=== PATIENT | female | born 1980 | race Caucasian/White ===

== ENCOUNTER 2016-09-30 20:19 | Emergency (ER) | payer MEDICAID ==
[2015-11-29 08:14] VITALS: BMI 25.2
[~2016-09-30 20:19] MED LIST: AMOXICILLIN875 MG; ATIVAN1 MG PO; HYDROCODONE-APA1 TAB PO; IBUPROFEN600 MG PO; PRENATAL COMPLE1 TAB PO; ZOLOFT100 MG PO
[2016-09-30 21:29] LABS: BASOPHILS 0.2 % (0.0-2.0); EOSINOPHILS 1.9 % (0-7); HEMOGLOBIN 12.3 g/dL (12-16); IMMATURE GRANULOCYTES 0.4 % (0-5); LYMPHOCYTES 26.5 % (15-50); MCHC 32.4 g/dL (31.0-37.0); MCV 92.7 fL (80.0-100.0); MEAN PLATELET VOLUME 10.3 fL (7.4-10.4); MONOCYTES 6.8 % (2-11); NEUTROPHILS 64.2 % (40-80); PLATELET COUNT 272 10x3/uL (130-400); RDW 13.5 % (11.5-14.5); WBC 10.8 10x3/uL (4.8-10.8)
[2016-09-30 21:54] LABS: ALKALINE PHOSPHATASE 66 U/L (46-116); ALT (SGPT) 17 U/L (10-68); BILIRUBIN - TOTAL 0.19 mg/dL (0.2-1.3); CALC OSMOLALITY 285 mosm/kg (275-300); CALCIUM 8.7 mg/dL (8.5-10.1); CARBON DIOXIDE 27.5 mmol/L (21.0-32.0); CHLORIDE - SERUM 106 mmol/L (98-107); CREATININE - SERUM 0.6 mg/dL (0.6-1.3); GLUCOSE 87 mg/dL (74-106); HCG SERUM NEGATIVE (NEGATIVE); POTASSIUM - SERUM 4.2 mmol/L (3.5-5.1); PROTEIN - SERUM 7.3 g/dL (6.4-8.2); SODIUM 143 mmol/L (136-145); UREA NITROGEN 17 mg/dL (7-18); eGFR NON AFRICAN AMERICAN > 90 mL/min (90-120)
[2016-10-01 00:38] LABS: APPEARANCE HAZY (CLEAR); BILIRUBIN NEGATIVE (NEGATIVE); COLOR YELLOW (YELLOW); GLUCOSE NEGATIVE (NEGATIVE); KETONE NEGATIVE (NEGATIVE); LEUKOCYTE ESTERASE NEGATIVE (NEGATIVE); NITRITE NEGATIVE (NEGATIVE); PROTEIN NEGATIVE (NEGATIVE); SPECIFIC GRAVITY 1.025 (1.005-1.020); UROBILINOGEN NORMAL (NORMAL)
== END 2016-10-01 00:41 | disposition home or self-care (01) ==
LOC: D.ER 20:19
PROVIDERS: Emergency Medicine
DX: N93.8 Other specified abnormal uterine and vaginal bleeding (principal); F17.200 Nicotine dependence, unspecified, uncomplicated

== ENCOUNTER 2016-10-09 05:24 | Day surgery (SDC) | payer MEDICAID ==
[2016-10-07 15:30] LABS: BASOPHILS 0.2 % (0.0-2.0); HEMATOCRIT 37.1 % (36.0-48.0); HEMOGLOBIN 11.7 g/dL (12-16); IMMATURE GRANULOCYTES 0.2 % (0-5); LYMPHOCYTES 25.9 % (15-50); MCH 29.6 pg (26.0-34.0); MCHC 31.5 g/dL (31.0-37.0); MCV 93.9 fL (80.0-100.0); MEAN PLATELET VOLUME 10.1 fL (7.4-10.4); MONOCYTES 6.1 % (2-11); NEUTROPHILS 65.6 % (40-80); PLATELET COUNT 295 10x3/uL (130-400); RBC 3.95 10x6/uL (4.00-5.40); RDW 13.5 % (11.5-14.5)
[~2016-10-09] VITALS: Ht 165.1 cm; Wt 59.0 kg
[2016-10-09 08:19] VITALS: BP 97/49; Ht 165.1 cm; Wt 59.0 kg
[2016-10-09 08:25] LABS: HCG URINE NEGATIVE (NEGATIVE)
--- NOTE | 2016-10-14 09:17 | OP ---
PATIENT NAME: FOREST SNOWDEN MEDICAL RECORD: [id number] :82 LOCATION:D[facility] ADMISSION DATE: SURGEON: VIPUL MARTINEZ MD DATE OF OPERATION: 10/09/2016 PREOPERATIVE DIAGNOSES: 1. Menorrhagia. 2. High-grade cervical dysplasia. POSTOPERATIVE DIAGNOSES: 1. Menorrhagia. 2. High-grade cervical dysplasia. PROCEDURE: 1. Dilation and curettage. 2. Loop electrosurgical excision procedure. SURGEON: Vipul Martinez MD. ANESTHESIA: General. INTRAVENOUS FLUIDS: Per anesthesia record. SPECIMENS: 1. Endometrial curettings. 2. Cervical cone biopsy. COMPLICATIONS: None apparent. SPECIMENS: Were as noted. PROCEDURE IN DETAIL: The patient was taken to the operating room where general anesthesia was achieved without difficulty. The patient was then prepped and draped in normal sterile fashion and placed in the dorsal lithotomy position in the [facility]. At this point, the vagina was prepped and the bladder was straight cathed and drained of approximately 20 cc of clear yellow urine. At this point, an insulated speculum was then placed into the vagina. The cervix was identified and grasped on its anterior lip with a single tooth tenaculum. The patient was found to be approximately 5-6 mm dilated and a #1 curette was used to fractionally sample all 4 quadrants of the uterus without difficulty. When the tenaculum was then removed some bleeding was noted from the tenaculum site. This was then cauterized using the Bovie cautery. At this point, the LEEP procedure was performed to a depth of approximately 8-9 mm. Following removal of the cone biopsy. The crater was then fulgurated using the Bovie cautery. Good hemostasis was noted and Monsel was placed into the cervical crater. Speculum was removed. The patient tolerated the procedure well, transferred to postanesthesia recovery stable without incident. TRANSINT:[id number] Voice Confirmation ID: [id number] DOCUMENT ID: [id number] at [id number] CC: [id number] DICTATION DATE: 10/09/16 1220 QUICK PRINT OPERATOR: 10/09/169 [facility] 10/09/16 [id number] [place] [address]
== END 2016-10-09 12:40 | disposition home or self-care (01) ==
LOC: D.OPS 05:24 → D.PAN 11:15 → D.OPS 12:40
PROVIDERS: Obstetrics & Gynecology
DX: N87.1 Moderate cervical dysplasia (principal); N72 Inflammatory disease of cervix uteri; N92.0 Excessive and frequent menstruation with regular cycle

== ENCOUNTER → 2017-04-08 13:09 | Outpatient (CLI) | payer OTHER ==
[2016-10-09 08:19] VITALS: BMI 21.6
== END | disposition home or self-care (01) ==
LOC: D.RAD 13:09
DX: D16.21 Benign neoplasm of long bones of right lower limb (principal); M79.604 Pain in right leg; M25.521 Pain in right elbow

== ENCOUNTER → 2017-06-30 11:58 | Outpatient (CLI) | payer OTHER ==
[2016-10-09 08:19] VITALS: BMI 21.6
== END | disposition home or self-care (01) ==
LOC: D.RAD 08:00
DX: M54.5 Low back pain (principal)

== ENCOUNTER 2018-01-27 01:16 | Emergency (ER) | payer MEDICAID ==
[~2018-01-27] VITALS: Ht 165.1 cm; Wt 64.5 kg
[2018-01-27 01:33] VITALS: Ht 165.1 cm; Wt 64.5 kg
[2018-01-27] MEDS ORDERED: KLONOPIN1 MG PO (01:35)
[2018-01-27] MEDS ORDERED: EC-NAPROSYN500 MG PO (03:05)
[2018-01-27 03:23] VITALS: BP 97/58
== END 2018-01-27 03:24 | disposition home or self-care (01) ==
LOC: D.ER 01:16
DX: S00.83XA Contusion of other part of head, initial encounter (principal); W01.0XXA Fall on same level from slipping, tripping and stumbling without subsequent striking against object, initial encounter; Y93.89 Activity, other specified; Y92.019 Unspecified place in single-family (private) house as the place of occurrence of the external cause; S83.90XA Sprain of unspecified site of unspecified knee, initial encounter; F17.200 Nicotine dependence, unspecified, uncomplicated

== ENCOUNTER 2018-02-01 21:24 | Emergency (ER) | payer MEDICAID ==
[~2018-02-01] VITALS: Ht 165.1 cm; Wt 64.5 kg
[~2018-02-01 21:24] MED LIST changes: +EC-NAPROSYN500 MG PO; +KLONOPIN1 MG PO
[2018-02-01 21:32] VITALS: Ht 165.1 cm; Wt 64.5 kg
[2018-02-01] MEDS ORDERED: EFFEXOR75 MG PO (21:37)
[2018-02-01] MEDS ORDERED: ULTRAM50 MG PO (21:38)
[2018-02-01] MEDS ORDERED: FLUVOXAMINE MA100 M1 PO (21:38)
[2018-02-01] MEDS ORDERED: MOBIC7.5 MG PO (21:39)
[2018-02-01 22:06] LABS: APPEARANCE CLEAR (CLEAR); BILIRUBIN NEGATIVE (NEGATIVE); COLOR YELLOW (YELLOW); GLUCOSE NEGATIVE (NEGATIVE); KETONE NEGATIVE (NEGATIVE); NITRITE NEGATIVE (NEGATIVE); PROTEIN NEGATIVE (NEGATIVE); SPECIFIC GRAVITY 1.025 (1.005-1.020); UROBILINOGEN NORMAL (NORMAL)
[2018-02-01 22:22] LABS: UDS - AMPHET POSITIVE QUAL (NEGATIVE); UDS - BARB NEGATIVE QUAL (NEGATIVE); UDS - BENZO POSITIVE QUAL (NEGATIVE); UDS - COCAINE NEGATIVE QUAL (NEGATIVE); UDS - OPIATE POSITIVE QUAL (NEGATIVE); UDS - PCP NEGATIVE QUAL (NEGATIVE); UDS - THC NEGATIVE QUAL (NEGATIVE)
[2018-02-01 22:42] LABS: BASOPHILS 0.2 % (0-2); EOSINOPHILS 1.5 % (0-7); HEMATOCRIT 37.5 % (36.0-48.0); HEMOGLOBIN 12.1 g/dL (12-16); IMMATURE GRANULOCYTES 0.6 % (0-5); LYMPHOCYTES 21.9 % (15-50); MCH 29.6 pg (26.0-34.0); MCHC 32.3 g/dL (31.0-37.0); MCV 91.7 fL (80.0-100.0); MEAN PLATELET VOLUME 9.3 fL (7.4-10.4); MONOCYTES 5.8 % (2-11); RBC 4.09 10x6/uL (4.00-5.40); RDW 13.6 % (11.5-14.5); WBC 10.9 10x3/uL (4.8-10.8)
[2018-02-01 22:45] LABS: PLATELET COUNT 198 10x3/uL (130-400)
[2018-02-01 22:53] LABS: HCG SERUM NEGATIVE (NEGATIVE)
[2018-02-01 23:02] LABS: ALBUMIN 3.3 g/dL (3.4-5.0); ALKALINE PHOSPHATASE 87 U/L (46-116); ALT (SGPT) 27 U/L (10-68); BILIRUBIN - TOTAL 0.29 mg/dL (0.2-1.3); CALC OSMOLALITY 275 mosm/kg (275-300); CALCIUM 8.2 mg/dL (8.5-10.1); CARBON DIOXIDE 26.8 mmol/L (21.0-32.0); CHLORIDE - SERUM 105 mmol/L (98-107); CREATININE - SERUM 0.9 mg/dL (0.6-1.3); GLUCOSE 83 mg/dL (74-106); POTASSIUM - SERUM 3.4 mmol/L (3.5-5.1); PROTEIN - SERUM 7.1 g/dL (6.4-8.2); SODIUM 139 mmol/L (136-145); UREA NITROGEN 10 mg/dL (7-18); eGFR NON AFRICAN AMERICAN 75 mL/min (90-120)
[2018-02-01 23:10] LABS: THYROID STIMULATING HORMONE 2.12 uIU/mL (0.36-3.74)
[2018-02-02 12:04] VITALS: BP 128/078
== END 2018-02-02 12:07 ==
LOC: D.ER 21:24
PROVIDERS: Emergency Medicine
DX: F32.9 Major depressive disorder, single episode, unspecified (principal); T14.91XA Suicide attempt, initial encounter; T50.992A Poisoning by other drugs, medicaments and biological substances, intentional self-harm, initial encounter; Y92.019 Unspecified place in single-family (private) house as the place of occurrence of the external cause; F17.200 Nicotine dependence, unspecified, uncomplicated; Z86.59 Personal history of other mental and behavioral disorders

== ENCOUNTER 2019-04-17 15:47 | Emergency (ER) | payer OTHER ==
[~2019-04-17] VITALS: Ht 165.1 cm; Wt 59.1 kg
[~2019-04-17 15:47] MED LIST changes: +EFFEXOR75 MG PO; +FLUVOXAMINE MA100 M1 PO; +MOBIC7.5 MG PO; +ULTRAM50 MG PO
[2019-04-17 15:52] VITALS: Ht 165.1 cm; Wt 59.1 kg
[2019-04-17] MEDS ORDERED: LITHIUM CARBON300 MG PO (15:54)
[2019-04-17 16:14] LABS: APPEARANCE CLEAR (CLEAR); BILIRUBIN NEGATIVE (NEGATIVE); COLOR YELLOW (YELLOW); GLUCOSE NEGATIVE (NEGATIVE); KETONE NEGATIVE (NEGATIVE); NITRITE NEGATIVE (NEGATIVE); PROTEIN TRACE mg/dL (NEGATIVE); UROBILINOGEN NORMAL (NORMAL)
[2019-04-17 16:15] LABS: BACTERIA MODERATE /hpf (NONE SEEN); RED CELLS - URINE OCC /hpf (0-5); WHITE CELLS - URINE 0-5 /hpf (0-5)
[2019-04-17 17:01] LABS: BASOPHILS 0.1 % (0-2); HEMATOCRIT 43.4 % (36.0-48.0); HEMOGLOBIN 14.6 g/dL (12-16); IMMATURE GRANULOCYTES 0.4 % (0-5); LYMPHOCYTES 18.7 % (15-50); MCH 30.3 pg (26.0-34.0); MCHC 33.6 g/dL (31.0-37.0); MEAN PLATELET VOLUME 10.2 fL (7.4-10.4); MONOCYTES 6.4 % (2-11); NEUTROPHILS 73.4 % (40-80); PLATELET COUNT 228 10x3/uL (130-400); RBC 4.82 10x6/uL (4.00-5.40); RDW 13.7 % (11.5-14.5); WBC 10.9 10x3/uL (4.8-10.8)
[2019-04-17 17:15] LABS: ALBUMIN 3.8 g/dL (3.4-5.0); ALKALINE PHOSPHATASE 82 U/L (46-116); ALT (SGPT) 16 U/L (10-68); BILIRUBIN - TOTAL 0.42 mg/dL (0.2-1.3); CALC OSMOLALITY 276 mosm/kg (275-300); CALCIUM 9.2 mg/dL (8.5-10.1); CARBON DIOXIDE 27.8 mmol/L (21.0-32.0); CHLORIDE - SERUM 104 mmol/L (98-107); CREATININE - SERUM 0.8 mg/dL (0.6-1.3); GLUCOSE 83 mg/dL (74-106); LIPASE 128 U/L (73-393); POTASSIUM - SERUM 3.8 mmol/L (3.5-5.1); PROTEIN - SERUM 7.8 g/dL (6.4-8.2); SODIUM 140 mmol/L (136-145); UREA NITROGEN 10 mg/dL (7-18); eGFR NON AFRICAN AMERICAN 85 mL/min (90-120)
[2019-04-17] MEDS ORDERED: ZOFRAN4 MG PO (18:20)
[2019-04-17] MEDS ORDERED: MACROBID100 MG PO (18:21)
[2019-04-17 18:43] VITALS: BP 118/64
== END 2019-04-17 18:43 | disposition home or self-care (01) ==
LOC: D.ER 15:47
PROVIDERS: Emergency Medicine
DX: M54.5 Low back pain (principal); R11.0 Nausea

== ENCOUNTER → 2019-06-16 15:54 | Outpatient (CLI) | payer MEDICAID ==
[2019-04-17 15:52] VITALS: BMI 21.6
[~2019-06-16 15:54] MED LIST changes: +LITHIUM CARBON300 MG PO; +MACROBID100 MG PO; +ZOFRAN4 MG PO
== END | disposition home or self-care (01) ==
LOC: D.LAB 15:54
PROVIDERS: ATTEND Family Medicine
DX: F31.9 Bipolar disorder, unspecified (principal)